=== PATIENT | male | born 1990 | race Caucasian/White ===

== ENCOUNTER 2019-03-18 20:05 | Emergency (ER) | payer OTHER ==
--- NOTE | 2019-03-18 21:01 | ED Physician Documentation ---
History of Present Illness - Stated complaint Stated Complaint: RECTAL PAIN - Chief complaint Chief Complaint: General - History obtained from History obtained from: Patient - History of Present Illness Timing: How many days ago (2) Pain level max: 10 Pain level now: 9 Worsened by: defecation - Additonal information Additional information: c/o 2 days of rectal pain with intermittent spasming pain. sudden onset 2 days ago when passing hard stool. has not had these symptoms before Review of Systems Constitutional: denies: Fever GI: denies: Abdominal Pain PD PAST MEDICAL HISTORY - Past Medical History Past Medical History: Yes Cardiovascular: Hypertension Other Past Medical History: polycythemia - Past Surgical History Past Surgical History: No - Present Medications Home Medications: Ambulatory Orders Medication Instructions Recorded Confirmed Atenolol 25 mg PO 05/10/13 05/10/13 Citalopram [CeleXA] 40 mg PO DAILY 05/10/13 05/10/13 HYDROcod/ACETAM 5/325 [Vicodin 1 - 2 ea PO Q6H PRN #15 tablet 05/10/13 5/325] Hydrocodone/Acetaminophen 1 - 2 each PO Q6H PRN #14 tablet 03/18/19 [Hydrocodon-Acetaminophen 5-325] Nitroglycerin [Rectiv] 1 film RC BID #1 oint...g. 03/18/19 - Allergies Allergies/Adverse Reactions: Allergies Allergy/AdvReac Type Severity Reaction Status Date / Time No Known Drug Allergies Allergy Verified 03/18/19 20:13 - Social History Does the pt smoke?: Yes Smoking Status: Current every day smoker Does the pt drink ETOH?: Yes Does the pt have substance abuse?: No PD ED PE NORMAL - Vitals Vital signs reviewed: Yes - General General: Alert and oriented X 3, No acute distress, Well developed/nourished PD ED PE EXPANDED - Rectal Rectal: Fissure (posterior ("6 o'clock" position) fissure without discharge, erythema, fluctuance) Results - Vitals Vitals: Vital Signs - 24 hr 03/18/19 03/18/19 03/18/19 20:10 21:19 21:20 Temperature 36.5 C Heart Rate 92 89 92 Respiratory 16 16 16 Rate Blood Pressure 166/108 H 191/133 H 202/134 H O2 Saturation 98 98 99 Oxygen O2 Source Room air PD MEDICAL DECISION MAKING - ED course Complexity details: considered differential, d/w patient Departure - Departure Disposition: 01 Home, Self Care Clinical Impression: Anal fissure Condition: Good Instructions: Sitz Bath, ED Fissure Anal Ch Prescriptions: Hydrocodone/Acetaminophen [Hydrocodon-Acetaminophen 5-325] 1 - 2 each PO Q6H PRN #14 tablet PRN Reason: pain Nitroglycerin [Rectiv] 1 film RC BID #1 oint...g. Comments: Follow up with your primary care provider: call in the morning to arrange for next available appointment. You might need more treatment. Occasionally, a procedure is needed to fix the lesion. Take stool softeners (OTC) to keep your stools soft, particularly if you take the vicodin. Discharge Date/Time: 03/18/19 21:39
[2019-03-18] MEDS ORDERED: HYDROcod/ACET 5/325 Prepack 4 PO STA (21:18)
[2019-03-18 21:21] VITALS: BP 202/134
== END 2019-03-18 21:39 | disposition home or self-care (01) ==
LOC: ED 20:05
DX: K60.2 Anal fissure, unspecified (principal); I10 Essential (primary) hypertension; F17.200 Nicotine dependence, unspecified, uncomplicated
CPT/HCPCS: 99283

== ENCOUNTER 2019-04-14 14:02 | Outpatient (CLI) | payer MEDICAID ==
[2019-04-14 18:30] LABS: BASOPHILS # (AUTO) 0.1 10^3/uL (0.0-0.1); BASOPHILS % (AUTO) 0.6 %; EOSINOPHILS # (AUTO) 0.2 10^3/uL (0.0-0.7); EOSINOPHILS % (AUTO) 1.8 %; HGB - HEMOGLOBIN 18.6 g/dL (14.0-18.0); LYMPHOCYTES # (AUTO) 2.5 10^3/uL (1.5-3.5); MEAN CORPUSCULAR HEMOGLOBIN 32.3 pg (27.0-31.0); MEAN CORPUSCULAR HGB CONC 35.5 g/dL (32.0-36.0); MEAN PLATELET VOLUME 9.7 fL (7.4-11.4); MONOCYTES # (AUTO) 0.7 10^3/uL (0.0-1.0); MONOCYTES % (AUTO) 7.3 %; NEUTROPHILS # (AUTO) 6.4 10^3/uL (1.5-6.6); NEUTROPHILS % (AUTO) 65.3 %; PLT - PLATELET COUNT 208 10^3/uL (130-450); RED BLOOD COUNT 5.75 10^6/uL (4.70-6.10); RED CELL DISTRIBUTION WIDTH 12.6 % (12.0-15.0); WHITE BLOOD COUNT 9.9 x10^3/uL (4.8-10.8)
[2019-04-14 18:33] LABS: ALBUMIN 4.3 g/dL (3.2-5.5); ALBUMIN/GLOBULIN RATIO 1.5 (1.0-2.2); BILIRUBIN,TOTAL 1.1 mg/dL (0.2-1.0); CALCIUM 9.4 mg/dL (8.5-10.3); CREATININE 0.9 mg/dL (0.6-1.2); TOTAL PROTEIN 7.2 g/dL (6.7-8.2)
[2019-04-15 08:51] LABS: HEPATITIS C ANTIBODY NON-REACTIVE (NON-REACTIVE)
[2019-04-15 15:24] LABS: HIV AG/AB 4TH GEN NON-REACTIVE (NON-REACTIVE)
== END 2019-04-14 14:03 | disposition home or self-care (01) ==
LOC: LAB.F 14:02
PROVIDERS: ATTEND Physician Assistant Medical
DX: D45 Polycythemia vera (principal); R53.83 Other fatigue; F98.8 Other specified behavioral and emotional disorders with onset usually occurring in childhood and adolescence; F41.9 Anxiety disorder, unspecified
CPT/HCPCS: 36415; 80053; 84443; 85025; 86803; 87389

== ENCOUNTER 2019-07-24 12:03 | Emergency (ER) | payer MEDICAID ==
[2019-07-24 12:27] LABS: GLUCOSE, URINE (UA) NEGATIVE (NEGATIVE); KETONES,URINE (UA) 15 mg/dL (NEGATIVE); LEUKOCYTE ESTERASE, URINE NEGATIVE (NEGATIVE); NITRITE,URINE NEGATIVE (NEGATIVE); OCCULT BLOOD,URINE NEGATIVE (NEGATIVE); PH,URINE 6.5 PH (5.0-7.5); PROTEIN,URINE TRACE mg/dL (NEGATIVE); UROBILINOGEN,URINE 1 (NORMAL) E.U./dL (NORMAL)
[2019-07-24 12:31] LABS: BILIRUBIN,URINE NEGATIVE (NEGATIVE); CLARITY,URINE CLEAR (CLEAR); ICTOTEST,URINE NEGATIVE
[2019-07-24] MEDS ORDERED: MAG HYDROX/AL HYDROX/SIMETH 30 ML UDC PO STA (12:36)
[2019-07-24] MEDS ORDERED: LIDOCAINE VISCOUS 2% 15 ML UDC MM STA (12:36)
--- NOTE | 2019-07-24 12:38 | ED Physician Documentation ---
PD HPI ABD PAIN - Stated complaint Stated Complaint: ABD PX - Chief complaint Chief Complaint: Abd Pain - History obtained from History obtained from: Patient - History of Present Illness Timing - onset: Other (29-year-old gentleman presents with a week's worth of waxing and waning epigastric pain. It is nonradiating. Its worse after eating and he has a poor appetite. He has been losing weight recently on purpose. He is been on Truvada for about 3 months for preexposure prophylaxis, and he takes Adderall in the mornings to decrease his appetite. He has no history of abdominal surgeries. He is nauseous with it but really has not vomited. He has had smaller than normal bowel movements but his intake is less. No blood from either end. The pain is described as a burning sensation.) Review of Systems Constitutional: reports: Weight Loss. denies: Fever, Chills Cardiac: denies: Chest pain / pressure, Palpitations Respiratory: denies: Dyspnea, Cough GI: reports: Abdominal Pain, Nausea, Constipation. denies: Vomiting, Diarrhea, Hematemesis, Bloody / black stool PD PAST MEDICAL HISTORY - Past Medical History Cardiovascular: Hypertension - Past Surgical History Past Surgical History: No - Present Medications Home Medications: Ambulatory Orders Medication Instructions Recorded Confirmed Atenolol 25 mg PO 05/10/13 05/10/13 Citalopram [CeleXA] 40 mg PO DAILY 05/10/13 05/10/13 HYDROcod/ACETAM 5/325 [Vicodin 1 - 2 ea PO Q6H PRN #15 tablet 05/10/13 5/325] Hydrocodone/Acetaminophen 1 - 2 each PO Q6H PRN #14 tablet 03/18/19 [Hydrocodon-Acetaminophen 5-325] Nitroglycerin [Rectiv] 1 film RC BID #1 oint...g. 03/18/19 Emtricitabine/Tenofovir [Truvada 07/24/19 100 mg-150 mg Tablet] Omeprazole 20 mg PO DAILY #30 capsule. 07/24/19 - Allergies Allergies/Adverse Reactions: Allergies Allergy/AdvReac Type Severity Reaction Status Date / Time No Known Drug Allergies Allergy Verified 03/18/19 20:13 - Social History Does the pt smoke?: Yes Smoking Status: Current every day smoker Does the pt drink ETOH?: Yes Does the pt have substance abuse?: No - POLST Patient has POLST: No PD ED PE NORMAL - Vitals Vital signs reviewed: Yes - General General: Alert and oriented X 3, No acute distress - HEENT HEENT: Pharynx benign - Cardiac Cardiac: RRR, No murmur - Respiratory Respiratory: No respiratory distress, Clear bilaterally - Abdomen Abdomen: Normal bowel sounds, Soft, Non tender - Back Back: No CVA TTP, No spinal TTP - Derm Derm: No rash - Neuro Neuro: No motor deficit - Psych Psych: Normal mood, Normal affect Results - Vitals Vitals: Vital Signs - 24 hr 07/24/19 12:07 Temperature 36.6 C Heart Rate 92 Respiratory 18 Rate Blood Pressure 152/109 H O2 Saturation 98 Oxygen O2 Source Room air - Labs Labs: Laboratory Tests 07/24/19 07/24/19 07/24/19 12:20 12:42 12:42 WBC 10.7 RBC 5.85 Hgb 19.3 H Hct 53.3 H MCV 91.1 MCH 33.0 H MCHC 36.2 H RDW 13.2 Plt Count 203 MPV 10.4 Neut # (Auto) 7.6 H Lymph # (Auto) 1.9 Maries # (Auto) 1.0 Eos # (Auto) 0.1 Baso # (Auto) 0.1 Absolute Nucleated RBC 0.00 Nucleated RBC % 0.0 Sodium 135 Potassium 3.3 L Chloride 96 L Carbon Dioxide 27 Anion Gap 12.0 BUN 10 Creatinine 0.9 Estimated GFR (MDRD) 98 Glucose 104 H Calcium 9.3 Total Bilirubin 1.3 H AST 18 ALT 25 Alkaline Phosphatase 46 Total Protein 6.8 Albumin 4.0 Globulin 2.8 Albumin/Globulin Ratio 1.4 Lipase 109 H Urine Color DARK YELLOW Urine Clarity CLEAR Urine pH 6.5 Ur Specific [place] 1.020 Urine Protein TRACE Urine Glucose (UA) NEGATIVE Urine Ketones 15 H Urine Occult Blood NEGATIVE Urine Nitrite NEGATIVE Urine Bilirubin NEGATIVE Urine Urobilinogen 1 (NORMAL) Ur Leukocyte Esterase NEGATIVE Ur Microscopic Review NOT INDICATED Urine Culture Comments NOT INDICATED - Rads (name of study) RUQ sono Radiology: EMP read contemporaneously (No gallstones, he does have fatty liver and mild hepatomegaly.) Procedures - General procedure General procedure: Therapeutic phlebotomy performed by me: I personally placed a 16-gauge IV in the right antecubital fossa after ChloraPrep. About 500 mL of normal saline was infused and then I draw 500 mL of blood into a bag. The patient tolerated this very well. PD MEDICAL DECISION MAKING - ED course ED course: 29-year-old gentleman presents with epigastric pain, tenderness most consistent with gastritis or ulcer. He had minimal relief with a GI cocktail. Work-up demonstrates a fatty liver. He does have a hemoglobin of 19-1/2 and a known h istory of polycythemia. He is had trouble with follow-up for that, but does have an appointment with an oncologist but not for almost a month and a half. As such per his request therapeutic phlebotomy was done personally by me with 500 mL out. He tolerated this very well. Given that I wonder if splenomegaly is part of his issue in which case the therapeutic phlebotomy may be helpful for his symptoms. PPI is also indicated as well as follow-up for potential endoscopy if symptoms are persistent. Departure - Departure Disposition: 01 Home, Self Care Clinical Impression: Epigastric pain, Polycythemia vera Condition: Good Record reviewed to determine appropriate education?: Yes Instructions: ED Epigastric Pain [facility] Follow-Up: Bryce Gilliam MD [Provider Admit Priv/Credential] - Prescriptions: Omeprazole 20 mg PO DAILY #30 capsule. Comments: If symptoms are persistent, follow-up with the surgeon listed on this form for evaluation for upper endoscopy. Return for new worsening symptoms. Keep the appointment you have with the oncologist next month for further evaluation and treatment. Let him or her know that we did a therapeutic phlebotomy of 500 mL today. Hopefully this helps your symptoms. Return for new or worsening symptoms. Your blood pressure was elevated today on check into the emergency department. This does not mean that you have hypertension, it is a common phenomenon to come to the emergency department and have elevated blood pressure. I recommend that you see your primary care physician within the week to have it rechecked when you are feeling better.
[2019-07-24 12:48] LABS: BASOPHILS # (AUTO) 0.1 10^3/uL (0.0-0.1); BASOPHILS % (AUTO) 0.8 %; EOSINOPHILS # (AUTO) 0.1 10^3/uL (0.0-0.7); EOSINOPHILS % (AUTO) 1.2 %; HGB - HEMOGLOBIN 19.3 g/dL (14.0-18.0); LYMPHOCYTES # (AUTO) 1.9 10^3/uL (1.5-3.5); LYMPHOCYTES % (AUTO) 17.8 %; MEAN CORPUSCULAR HGB CONC 36.2 g/dL (32.0-36.0); MEAN CORPUSCULAR VOLUME 91.1 fL (80.0-94.0); MEAN PLATELET VOLUME 10.4 fL (7.4-11.4); MONOCYTES % (AUTO) 9.2 %; NEUTROPHILS # (AUTO) 7.6 10^3/uL (1.5-6.6); NEUTROPHILS % (AUTO) 70.4 %; PLT - PLATELET COUNT 203 10^3/uL (130-450); RED BLOOD COUNT 5.85 10^6/uL (4.70-6.10); RED CELL DISTRIBUTION WIDTH 13.2 % (12.0-15.0); WHITE BLOOD COUNT 10.7 x10^3/uL (4.8-10.8)
[2019-07-24 13:01] LABS: ALBUMIN/GLOBULIN RATIO 1.4 (1.0-2.2); BILIRUBIN,TOTAL 1.3 mg/dL (0.2-1.0); CALCIUM 9.3 mg/dL (8.5-10.3); CREATININE 0.9 mg/dL (0.6-1.2); TOTAL PROTEIN 6.8 g/dL (6.7-8.2)
--- NOTE | 2019-07-24 13:37 | Ultrasound Report ---
Reason: epigastric pain Procedure Date: 07/24/2019 Accession Number: [id number] / [id number] Procedure: US - Abdomen Limited CPT Code: FULL RESULT: EXAM: ABDOMEN ULTRASOUND LIMITED, RUQ EXAM DATE: 07/24/2019 01:18 PM. CLINICAL HISTORY: Epigastric pain. COMPARISON: None. TECHNIQUE: Real-time scanning was performed with static images obtained. FINDINGS: Liver: Diffusely echogenic. No definite mass. Mildly enlarged, 17.8 cm. Main portal vein flow: Hepatopetal. Gallbladder: Normal. No stones, wall thickening, or sonographic Herndon's sign. Biliary System: CBD measures 4.6 mm. No intrahepatic or extrahepatic ductal dilatation. Other: Unremarkable right kidney and visualized pancreas. IMPRESSION: Fatty liver, mild hepatomegaly. RADIA
[2019-07-24] MEDS ORDERED: PANTOPRAZOLE 40 MG VIAL IVP STA (13:38)
[2019-07-24 14:24] VITALS: BP 159/106
== END 2019-07-24 14:25 | disposition home or self-care (01) ==
LOC: ED 12:03
DX: R10.13 Epigastric pain (principal); D45 Polycythemia vera; I10 Essential (primary) hypertension; F17.200 Nicotine dependence, unspecified, uncomplicated
CPT/HCPCS: 36415; 76705; 80053; 81003; 83690; 85025; 96374; 99195; 99284; A9270; 81001; 87086

== ENCOUNTER 2019-10-20 21:21 | Emergency (ER) | payer MEDICAID ==
[2019-10-20] MEDS ORDERED: LIDOCAINE-EPINEPH-TETRACAINE 3 ML SYRINGE TOP STA (22:26)
--- NOTE | 2019-10-20 22:28 | ED Physician Documentation ---
History of Present Illness - Stated complaint Stated Complaint: RECTUM PX - Chief complaint Chief Complaint: General - Additonal information Additional information: This is a 29-year-old male who presents with rectal pain. He was diagnosed with anal fissure recently, he was prescribed nitroglycerin but the formulation he was prescribed was not covered by his insurance so he has not been able to use this. His pain has been worse last 2 days. He is been taking fiber to have soft bowel movements, but he has extreme pain with any bowel movements or sitting in certain ways. He has not noticed any blood in his stool. No history of inflammatory bowel disease. No abdominal pain or vomiting. Review of Systems Constitutional: denies: Fever GI: denies: Abdominal Pain, Vomiting : denies: Dysuria PD PAST MEDICAL HISTORY - Past Medical History Cardiovascular: Hypertension - Past Surgical History Past Surgical History: No - Present Medications Home Medications: Ambulatory Orders Medication Instructions Recorded Confirmed Atenolol 25 mg PO 05/10/13 05/10/13 Citalopram [CeleXA] 40 mg PO DAILY 05/10/13 05/10/13 HYDROcod/ACETAM 5/325 [Vicodin 1 - 2 ea PO Q6H PRN #15 tablet 05/10/13 5/325] Hydrocodone/Acetaminophen 1 - 2 each PO Q6H PRN #14 tablet 03/18/19 [Hydrocodon-Acetaminophen 5-325] Nitroglycerin [Rectiv] 1 film RC BID #1 oint...g. 03/18/19 Emtricitabine/Tenofovir [Truvada 07/24/19 100 mg-150 mg Tablet] Omeprazole 20 mg PO DAILY #30 capsule. 07/24/19 Lidocaine Jelly 2% [Glydo] 1 applic TOP BID PRN #1 tube 10/20/19 Nitroglycerin [Rectiv] 30 gm RC BID 28 Days #30 oint...g. 10/20/19 Polyethylene Glycol 3350 [Miralax] 17 gm PO DAILY PRN #1 bottle 10/20/19 - Allergies Allergies/Adverse Reactions: Allergies Allergy/AdvReac Type Severity Reaction Status Date / Time No Known Drug Allergies Allergy Verified 03/18/19 20:13 - Social History Does the pt smoke?: Yes Smoking Status: Current every day smoker Does the pt drink ETOH?: Yes Does the pt have substance abuse?: No - POLST Patient has POLST: No PD ED PE NORMAL - Vitals Vital signs reviewed: Yes - General General: Alert and oriented X 3 - HEENT HEENT: Atraumatic - Cardiac Cardiac: RRR - Respiratory Respiratory: No respiratory distress - Abdomen Abdomen: Soft, Non tender, Non distended - Rectal Rectal: Other (There is a anal fissure in the 6 o'clock position which extends proximally 1 cm out from the opening of the anus. There is no bleeding, no other lesions seen no hemorrhoids seen.) - Extremities Extremities: No deformity - Neuro Neuro: Alert and oriented X 3 Results - Vitals Vitals: Vital Signs - 24 hr 10/20/19 10/20/19 21:27 22:41 Temperature 36.6 C Heart Rate 101 H 80 Respiratory 18 16 Rate Blood Pressure 146/94 H 136/87 H O2 Saturation 97 98 Oxygen O2 Source Room air PD MEDICAL DECISION MAKING - ED course Complexity details: considered differential (Anal fissure, perirectal abscess, hemorrhoids, Inflammatory bowel disease) ED course: Patient presents With persistent anal pain, worse with bowel movements. He has an obvious anal fissure on exam. Patient has really not been using any medical therapy on this, he has not had any local analgesics or topical medications. He has no symptoms that would suggest more concerning pathology, no history of inflammatory bowel disease, no blood in his stool, no abdominal pain or vomiting. I discussed care with sits baths, topical nitroglycerin, and topical analgesics, as well as MiraLAX until he is having very soft bowel movements. I also recommended follow-up with his primary care provider, and if his symptoms are not improving he may need to see a general surgeon. Patient provided with some topical lidocaine here in the emergency department. He agrees the plan, and was discharged home in good condition. Departure - Departure Disposition: 01 Home, Self Care Clinical Impression: Anal fissure Condition: Good Instructions: ED Fissure Anal Ch Follow-Up: RASHI MG [Primary Care Provider] - Within 1 week (For follow up on anal fissure) Prescriptions: Lidocaine Jelly 2% [Glydo] 1 applic TOP BID PRN #1 tube PRN Reason: Rectal Discomfort Nitroglycerin [Rectiv] 30 gm RC BID 28 Days #30 oint...g. Polyethylene Glycol 3350 [Miralax] 17 gm PO DAILY PRN #1 bottle PRN Reason: Constipation Comments: You have an anal fissure. Please apply the nitroglycerin as directed, you may also use the lidocaine jelly for pain control. Please take the MiraLAX in order to have soft bowel movements. Please follow-up the primary care provider, if does not improve you may need to see a general surgeon. Continue sitz baths. Discharge Date/Time: 10/20/19 22:41
[2019-10-20] MEDS: LIDOCAINE-EPINEPH-TETRACAINE 3 ML SYRINGE TOP STA (22:37)
[2019-10-20 22:41] VITALS: BP 136/87
== END 2019-10-20 22:41 | disposition home or self-care (01) ==
LOC: ED 21:21
DX: K60.2 Anal fissure, unspecified (principal); I10 Essential (primary) hypertension; F17.200 Nicotine dependence, unspecified, uncomplicated
CPT/HCPCS: 99283; 99284